=== PATIENT | female | born 1960 ===

== ENCOUNTER 2020-08-31 16:27 | Outpatient (CLI) | payer BC, SELFPAY | END 2020-08-31 16:28 | disposition home or self-care (01) | LOC: ANHCOVIDVC 16:28 | DX: Z23 Encounter for immunization (principal) | CPT/HCPCS: 0001A; 91300 ==

== ENCOUNTER 2020-09-21 16:28 | Outpatient (CLI) | payer BC, SELFPAY | END 2020-09-21 16:29 | disposition home or self-care (01) | LOC: ANHCOVIDVC 16:28 | DX: Z23 Encounter for immunization (principal) | CPT/HCPCS: 0002A; 91300 ==